=== PATIENT | male | born 1965 | race Caucasian/White ===

== ENCOUNTER → 2021-12-30 | Outpatient (CLI) | payer BC ==
--- NOTE | 2021-12-31 09:55 | MR ---
MR left elbow HISTORY: Pain Multiplanar multisequence imaging obtained through the left elbow, correlation to plain film dated There is abnormal increased T2 signal involving the biceps tendon insertion, the tendon is thickened and irregular but not retracted. Bone marrow signal is maintained. No sizable joint effusion. Common flexor tendon, common extensor tendon shows normal appearance. Triceps tendon shows a normal insertio n. Articular cartilage signal is maintained. Axial images do not go entirely through the tendon inser tion. Additional images will be repeated at no additional charge the patient should it be requested. IMPRESSION: Partial tear biceps tendon insertion
== END | disposition home or self-care (01) ==
LOC: RADMRIMAIN 10:07
PROVIDERS: ATTEND Orthopaedic Surgery Hand Surgery
DX: S46.212A Strain of muscle, fascia and tendon of other parts of biceps, left arm, initial encounter (principal)

== ENCOUNTER → 2024-04-17 | Outpatient (CLI) | payer BC ==
--- NOTE | 2024-04-17 12:28 | MR ---
EXAMINATION TYPE: MR knee LT wo con DATE OF EXAM: 04/17/2024 COMPARISON: X-ray 04/08/2020 HISTORY: Lt knee pain TECHNIQUE: Multiplanar, multisequence imaging of the left knee is performed without IV contrast. FINDINGS: MEDIAL MENISCUS: There is a linear tear involving the posterior horn of the medial meniscus. LATERAL MENISCUS: Intrasubstance signal involving the posterior horn of the lateral meniscus favored mucoid degeneration although a subtle tear not excluded. CRUCIATE LIGAMENTS: The anterior and posterior cruciate ligaments are intact and unremarkable. COLLATERAL LIGAMENTS: The medial collateral ligament and lateral collateral ligament complex are inta ct and unremarkable. EXTENSOR MECHANISM: Visualized quadriceps and patellar tendons are intact. EFFUSION: Trace amount of fluid is seen within the suprapatellar bursa. POPLITEAL CYST: There is a 2.2 x 0.6 x 4.2 cm popliteal fossa cyst. TRICOMPARTMENT SPACES: There is fibrillation and grade III chondromalacia patellar cartilage. Mild na rrowing of the medial compartment and patellofemoral compartment of the joint spaces. No erosive teague ges. CARTILAGE: Grade III chondromalacia involving the patellar cartilage. BONE MARROW SIGNAL: Marrow signal involving the patella appears reactive. OTHER: Small amount of edema seen in the prepatellar space. IMPRESSION: 1. Posterior horn medial meniscal linear tear. 2. Intrasubstance signal posterior horn lateral meniscus favored myxoid degeneration although subtle linear tear not excluded. 3. Mild osteoarthritis. 4. Chondromalacia involving the patellar cartilage. 5. Popliteal fossa cyst measuring 2.2 x 0.6 x 4.2 cm.
== END | disposition home or self-care (01) ==
LOC: RADMRIMAIN 11:13
PROVIDERS: ATTEND Orthopaedic Surgery
DX: S83.242A Other tear of medial meniscus, current injury, left knee, initial encounter (principal); M17.12 Unilateral primary osteoarthritis, left knee; M94.262 Chondromalacia, left knee; M71.22 Synovial cyst of popliteal space [Baker], left knee

== ENCOUNTER → 2024-07-23 | Outpatient (CLI) | payer BC ==
[2024-07-23 15:17] LABS: Carbon Dioxide 22.2 mmol/L (21.6-31.8); Potassium 4.7 mmol/L (3.5-5.5)
[2024-07-23 15:18] LABS: Anion Gap 10.8 mmol/L (4.00-12.00)
[2024-07-23 15:30] LABS: Basophils # (A) 0.05 X 10*3/uL (0.00-0.10); Basophils % (A) 0.8 %; Eosinophils # (A) 0.15 X 10*3/uL (0.04-0.35); Eosinophils % (A) 2.4 %; HCT 50.4 % (39.6-50.0); HGB 17.8 g/dL (13.0-17.0); Lymphocytes # (A) 1.46 X 10*3/uL (0.90-5.00); Lymphocytes % (A) 23.7 %; MCH 32.4 pg (27.0-32.0); MCHC 35.3 g/dL (32.0-37.0); MCV 91.8 FL (80.0-97.0); Mean Platelet Volume 10.4 FL (9.5-12.2); Monocytes # (A) 0.62 X 10*3/uL (0.20-1.00); Monocytes % (A) 10.1 %; NRBC Per 100 WBC 0 X 10*3/uL (0.00-0.01); Neutrophils # (A) 3.85 X 10*3/uL (1.80-7.70); Neutrophils % (A) 62.7 %; Platelet Count 250 X 10*3/uL (140-440); RBC 5.49 X 10*6/uL (4.40-5.60); RDW 13.7 % (11.5-14.5); WBC 6.15 X 10*3/uL (4.50-10.00)
== END | disposition home or self-care (01) ==
LOC: LABWHC1 08:47
PROVIDERS: ATTEND Orthopaedic Surgery
DX: M23.92 Unspecified internal derangement of left knee (principal)
CPT/HCPCS: 36415; 80051; 85025; 93005

== ENCOUNTER 2024-07-30 09:34 | Day surgery (SDC) | payer BC ==
[2024-07-30] MEDS ORDERED: LIDOCAINE 1% (10MG/ML) FOR IV START INTRADERMA PRN (09:57)
[2024-07-30] MEDS ORDERED: HYDROmorphone 0.5 MG/0.5 ML SYRINGE IVP PRN (09:57)
[2024-07-30] MEDS ORDERED: fentaNYL (PF) 50 MCG/ML 2 ML AMP IVP PRN (09:57)
[2024-07-30] MEDS ORDERED: MIDAZOLAM 2 MG/2 ML VIAL IV PRN (09:57)
[2024-07-30] MEDS: IV FLUID CONTINUATION 1,000 ML IV ONE (10:03)
[2024-07-30] MEDS: LACTATED RINGERS 1,000 ML IV SCH (10:18)
[2024-07-30] MEDS: DEXAMETHASONE SOD PHOSPHATE 4 MG/ML 1 ML VIAL IV ONE (10:19)
[2024-07-30] MEDS: ONDANSETRON 4 MG/2 ML VIAL IVP ONE (10:19)
[2024-07-30] MEDS: BUPIVACAINE (PF) 0.25% 30 ML VIAL MISCELLANE ONE ×2 (10:20→11:03)
[2024-07-30] MEDS ORDERED: PROPOFOL 10 MG/ML 20 ML VIAL IV ONE (10:23)
[2024-07-30] MEDS ORDERED: KETOROLAC 15 MG/ML 1 ML VIAL ONE (10:23)
[2024-07-30] MEDS ORDERED: SUCCINYLCHOLINE CHLORIDE 200 MG/10 ML VIAL IV ONE (10:23)
[2024-07-30] MEDS ORDERED: fentaNYL (PF) 50 MCG/ML 2 ML AMP ONE (10:23)
[2024-07-30] MEDS ORDERED: MIDAZOLAM 2 MG/2 ML VIAL ONE (10:23)
[2024-07-30] MEDS ORDERED: LIDOCAINE 1% INJ 10MG/ML (20 ML MDV) ONE (10:23)
[2024-07-30 11:21] VITALS: TEMP 97.3
--- NOTE | 2024-07-30 11:23 | P.OP ---
Date of Procedure: 07/30/24 Preoperative Diagnosis: Internal derangement left knee Postoperative Diagnosis: 1. Tear medial and lateral meniscus left knee 2. Grade IV chondromalacia femoral sulcus left knee 3. Reactive synovitis medial, lateral and suprapatellar compartments left knee Procedure(s) Performed: 1. Arthroscopic partial medial and lateral meniscectomy left knee 2. Arthroscopic microfracture femoral sulcus left knee 3. Arthroscopic partial synovectomy medial, lateral and suprapatellar compartments left knee Anesthesia: GETA, local Surgeon: Nick Rebolledo Estimated Blood Loss (ml): 7 Pathology: none sent Condition: stable Disposition: PACU Indications for Procedure: 59-year-old gentleman seen with progressive left knee pain. After having treatment options discussed, he elected to proceed with arthroscopy. Operative Findings: See description of procedure Description of Procedure: Patient was taken to the operative suite. Patient underwent a general anesthetic by the department of anesthesia. Patient was given preoperative antibiotics. The left lower extremity was placed in a well-padded arthroscopic leg hernandez. The left leg was prepped and draped in the normal sterile orthopedic fashion. A lateral parapatellar and suprapatellar incision was made. Trochars were inserted. Arthroscopy was initiated. Suprapatellar pouch revealed diffuse thick reactive synovitis. The patellofemoral joint appeared to articulate congruently. There was grade I chondromalacia of the patella with no osteochondral tears and grade III/IV chondromalacia changes of the femoral sulcus with osteochondral tears.. The scope was guided into the medial gutter. No loose bodies or plica were identified. The scope was then guided into the medial compartment. A medial parapatellar incision was made. Trocar inserted followed by probe. There was a complex tear involving the posterior medial meniscus. There were grade I chondromalacia changes medial femoral condyle without any significant tears. There was thick reactive synovitis anteriorly. I performed a partial medial meniscectomy getting down to stable meniscal tissue. I performed a partial synovectomy decompressing the reactive synovitis. The residual meniscus was stable. There was good decompression of the synovitis. Scope and probe were then guided into the intercondylar notch. Cruciates were identified, probed and found to be stable. The scope and probe were then guided into lateral compartment. There was a radial tear mid body lateral meniscus. There was thick reactive synovitis anteriorly. There was no significant chondromalacia present. I performed a partial lateral meniscectomy getting down to stable meniscal tissue. I performed a partial synovectomy decompressing the reactive synovitis. The residual meniscus was probed and was found to be stable. There was good decompression of the synovitis. The scope was in guided back into the suprapatellar compartment. I introduced a motorized shaver and performed a chondroplasty of the femoral sulcus getting down to stable osteochondral tissue. I debrided some piecemeal fragments of meniscus I encountered. I performed a partial synovectomy decompressing the reactive synovitis throughout the supra compartment. I did note an area of grade IV chondromalacia involving the medial femoral condyle which was about a centimeter in diameter. I introduced a microfracture awl and I performed a microfracture to the area of grade IV chondromalacia/exposed bone penetrating the bone with resultant bleeding at the microfracture site. Area was probed and was found to be stable. I again noted good decompression of the synovitis. I took 1 more look around the entire knee, no residual debris. Instruments were now removed from the joint. The joint was infiltrated with .25% Marcaine. Steri-Strips were applied to the portal sites. Sterile dressings were applied. The patient was placed into a TAMMY hose. No tourniquet was utilized. The patient was awakened, transferred to a bed and taken to recovery stable satisfactory condition.
[2024-07-30 12:16] VITALS: RESP 16
[2024-07-30 12:34] VITALS: BP 122/73; PULSE 68
--- NOTE | 2024-07-30 14:50 | HP ---
HISTORY AND PHYSICAL DATE OF SURGERY: 07/30/2024. HISTORY OF PRESENT ILLNESS: Chris Whitten is a 59-year-old gentleman, seen with progressive left knee pain. Options for treatment were discussed with him. He had post left knee arthroscopy. Consent was obtained. PAST MEDICAL HISTORY: Noncontributory. PAST SURGICAL HISTORY: Noncontributory. DAILY MEDICATIONS: Aleve. ALLERGIES: None reported. SOCIAL HISTORY: Denies tobacco use. PHYSICAL EVALUATION OF THE LEFT KNEE: His range of motion is 0 to 130 degrees. Tenderness, medial joint line. Positive medial Sheryl's. Ligaments stable. Hip rotation without pain. Distal neurovascular exam is intact. IMAGING STUDIES: Left knee radiographs revealed mild osteoarthritis. Left knee MRI revealed medial meniscal tear, possible lateral meniscal tear, popliteal cyst. IMPRESSION: Internal derangement of left knee with medial meniscal tear, and possible lateral meniscal tear. PLAN: Left knee arthroscopy with partial medial meniscectomy, possible partial lateral meniscectomy and debridement. MMODL / IJN: [id number] /
== END 2024-07-30 12:47 | disposition home or self-care (01) ==
LOC: OR 09:34
PROVIDERS: ATTEND Orthopaedic Surgery
DX: M23.92 Unspecified internal derangement of left knee